=== PATIENT | female | born 1980 | race Caucasian/White ===

== ENCOUNTER → 2025-01-27 07:55 | Outpatient (REF) | payer BC, SELFPAY | LOC: RAD 07:55 | PROVIDERS: ATTENDING PHYSICIAN Physician Assistant | DX: M25.572 Pain in left ankle and joints of left foot (principal) | CPT/HCPCS: 73610 ==

== ENCOUNTER → 2025-02-25 12:18 | Outpatient (REF) | payer BC, SELFPAY | LOC: DHSLP 12:18 | PROVIDERS: ATTENDING PHYSICIAN Physician Assistant; FAMILY PHYSICIAN Physician Assistant Medical | DX: G47.8 Other sleep disorders (principal); R06.83 Snoring | CPT/HCPCS: 95810 ==